=== PATIENT | female | born 1965 | race Caucasian/White ===

== ENCOUNTER 2017-03-12 09:29 | Emergency (ER) | payer BC ==
--- OUTSIDE RECORDS SUMMARY | 2017-03-12 09:45 | XMS REPORT ---
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 Active AND/OR meniscus of knee Onset: 02/10/2013 Sciatica Julien Arreola M.D. Active Onset: 02/10/2013 Acquired spondylolisthesis Julien Arreola M.D. 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 Cigarette Use Never Smoked Cigarettes ETOH Use Occasionally consumes alcohol Recreational Drug Use Denies Drug Use Smoking Patient has never smoked Exercise Type/Frequency Exercises regularly General Hx Text Allergies, Adverse Reactions, Alerts Date Description Reaction Status Severity Comments 02/10/2013 Sulfa Antibiotics active Medications Medication Date Status Form Strength Qnty SIG Indications Ordering Provider Duloxetine / Active Caps DR 30mg 1 by mouth Unknown HCL 0000 Part every day Glucosamine / Active Unknown 0000 Loratadine / Active Tablets 10mg 1 by mouth Unknown 0000 every day MCT Oil / Active Oil Unknown 0000 Lion's Garrick / Active Unknown 0000 Spiriva / Active Capsules 18mcg 1 unit Unknown Handihaler 0000 inhalation daily Advair / Active Unknown 0000 Vitamin D / Active Unknown 0000 Calcium / Active Unknown 0000 Nasal Steroid / Active Unknown 0000 Multivit / Active 1 by mouth Unknown Drink 0000 every day Lamictal / Hx Tablets 100mg 60tabs 1 po bid Unknown 0000 - 2017 Lamictal / Hx Tablets 25mg 120tab 1 po bid Unknown 0000 - s 2017 Tramadol HCL / Hx Tablets 50mg 100tab qid prn Unknown 0000 - s 2017 Flector / Hx Patches 1.3% 30unit topical prn Unknown 0000 - s 2017 Compounded / Hx prn for Unknown Ointment 0000 - nerve pain 2017 Restoril / Hx Capsules 7.5mg 30caps 1-3 po hs as Unknown 0000 - needed 2017 Xanax / Hx Tablets 0.25mg 30tabs one by mouth Unknown 0000 - up to three 02/15/ times daily 2018 as needed for anxiety Ibuprofen / Hx Capsules 200mg prn Unknown - 2017 Naproxen / Hx Tablets 500mg 60tabs 1 po bid prn Unknown - 2017 Vital Signs Date Vital Result Comment 02/24/2017 Height 61 inches 5'1" Weight 139.00 lb w/o shoes Heart Rate 74 /min reg BP Systolic Sitting 120 mmHg Rue, reg cuff BP Diastolic Sitting 80 mmHg Rue, reg cuff Respiratory Rate 16 /min Pain Level 2 right knee BMI (Body Mass Index) 26.3 kg/m2 03/03/2013 Height 61.5 inches 5'1.50" Weight 136.00 lb BP Systolic 126 mmHg BP Diastolic 78 mmHg Pain Level 0 BMI (Body Mass Index) 25.3 kg/m2 02/10/2013 Height 61.5 inches 5'1.50" Weight 139.00 lb BP Systolic 110 mmHg BP Diastolic 78 mmHg Pain Level 3 low back, left hip, buttock and leg BMI (Body Mass Index) 25.8 kg/m2 Results Description No Information Procedures Description No Information Encounters Type Date Location Provider CPT E/M Dx Office Visit 03/03/2013 [facility] Julien Arreola, 33858 756.11 1:00p [facility] 738.4 Office Visit 02/10/2013 2:00p [facility] Julien Arreola, 76275 756.11 [facility] 738.4 724.3 Office Visit 01/02/2010 2:20p [facility] Julien Arreola 17907 850.0 [facility] [place] [facility] 847.2 E812.0 Office Visit 02/27/2008 4:00p [facility] Julien Arreola, 09709 721.0 [facility] Plan of Care 02/24/2017 - Saud Martinez M.D.S83.221A Prph tear of medial meniscus, current injury, r knee, initNew Xrays:SP Cervical 4+VWSFollow up:Call to set up surgery
--- OUTSIDE RECORDS SUMMARY | 2017-03-12 09:45 | XMS REPORT ---
:1965 External Reference #:[id number] Author Organization [facility] Address [address] [place] [address] Phone [phone] Care Team Providers Name Role Phone Jeremy Guidry MD Primary Care Physician Unavailable Payers Type Date Identification Numbers Payment Provider Subscriber Commercial Policy Number: [id number] BC/BS Of MIAN Rozina Allen PayID: [id number] [facility] [address] [place] [address] Problems Date Description Provider Status Onset: 11/05/2015 Moderate persistent asthma Marilyn Connie, MUNICIPAL MAINTENANCE WORKER-C Active Onset: 11/05/2015 Allergic rhinitis Marilyn Connie, MUNICIPAL MAINTENANCE WORKER-C Active Onset: 11/05/2015 Allergic rhinitis due to animals Marilyn Connie, MUNICIPAL MAINTENANCE WORKER-C Active Onset: 11/05/2015 Allergic rhinitis due to pollen Marilyn ConnieVAN roseP-C Active Onset: 04/25/2013 Tietze's disease Saud Brown M.D. Active Onset: 04/25/2013 Extrinsic asthma without status Saud Brown M.D. 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 Home Environment Has a window air conditioner Home Environment Mattress is 1 year old Home Environment Mattress is encased in an allergy proof case Home Environment Does not use a dehumidifier Home Environment The home is lew Home Environment The floors are wood Home Environment Uses forced air heating Home Environment [place] Environment Water Source: Well Smoke-Free Home is smoke-free Smoke-Free Work is smoke-free Pets 1 dog 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 ETOH Use Rarely consumes alcohol Smoking Patient has never smoked Recreational Drug Use Never Used Drugs Allergies, Adverse Reactions, Alerts Date Description Reaction Status Severity Comments 04/25/2013 Sulfa itching active 05/23/2013 Symbicort (US) shortness of breath & anxiety active Medications Medication Date Status Form Strength Qnty SIG Indications Ordering Provider Spiriva Respimat 07/10 Active Aerosol 1.25mcg/A 4gm 2 ct inhalation [place]rich, once a day MUNICIPAL MAINTENANCE WORKER-C Advair Diskus 09/19 Active Aerosol 250-50mcg 1unit 1 / s inhalation Uldrich, twice MUNICIPAL MAINTENANCE WORKER-C daily. rinse mouth following every use Optichamber 10/24 Active Misc 1unit use with Mary s all Dussing, inhalers MUNICIPAL MAINTENANCE WORKER-C may substitute easivent or aerochamber Nasonex 10/23 Active Suspension 50mcg/Act 1unit 1-2 sprays J30.1 s each Uldrich, nostril MUNICIPAL MAINTENANCE WORKER-C once daily Tramadol HCL Active Tablets 50mg Unknown /[address] 30mg Unknown /0000 Part Loratadine Active Tablets 10mg 30tab 1 tablet by Ana /0000 s mouth every Uldrich, day. MUNICIPAL MAINTENANCE WORKER-C Albuterol Active Nebulizer (2.5mg/3M 150un #1 via Ana /0000 L) 0.083% its nebulizer Uldrich, every 4-6 MUNICIPAL MAINTENANCE WORKER-C hours as needed for cough, shortness of breath and wheezing Proair HFA Active Aerosol 108(90Bas two Unknown /0000 e) inhalations mcg/Act every 4 hours as needed for cough, wheezing or chest tightness Cyclobenzaprine 00 Active Tablets prn Unknown HCL 0000 Temazepam 00 Active Capsules 15mg Stevanovi /0000 Jeremy bergeron MD Guaifenesin ER 00 Active Tablets ER 1200mg 1 by mouth Unknown /0000 12HR every 12 hours Immunizations CPT Code Status Date Vaccine Lot # [id number] Given Unknown Influenza Vaccine Vital Signs Date Vital Result Comment 03/01/2017 Height 61 inches 5'1" Weight 140.00 lb Weight in kg's 63.504 Respiratory Rate 20 /min Heart Rate 86 /min O2 % BldC Oximetry 98 % BP Systolic 116 mmHg BP Diastolic 79 mmHg Asthma Control Test 16 BMI (Body Mass Index) 26.4 kg/m2 07/02/2016 Height 61 inches 5'1" Weight 139.00 lb Weight in kg's 63.050 Respiratory Rate 20 /min Heart Rate 91 /min O2 % BldC Oximetry 98 % BP Systolic 115 mmHg BP Diastolic 81 mmHg Asthma Control Test 15 BMI (Body Mass Index) 26.3 kg/m2 11/05/2015 Height 61 inches 5'1" patient stated Weight 132.00 lb patient stated Weight in kg's 59.875 Respiratory Rate 20 /min Heart Rate 79 /min O2 % BldC Oximetry 97 % BP Systolic 107 mmHg BP Diastolic 68 mmHg Asthma Control Test 22 BMI (Body Mass Index) 24.9 kg/m2 09/03/2015 Height 61 inches 5'1" Weight 132.00 lb Weight in kg's 59.875 Respiratory Rate 16 /min Heart Rate 85 /min O2 % BldC Oximetry 98 % BP Systolic 106 mmHg BP Diastolic 70 mmHg Asthma Control Test 5 BMI (Body Mass Index) 24.9 kg/m2 05/02/2015 Height 61 inches 5'1" Weight 134.00 lb per patient Weight in kg's 60.782 Respiratory Rate 16 /min Heart Rate 90 /min O2 % BldC Oximetry 96 % BP Systolic 102 mmHg BP Diastolic 78 mmHg Asthma Control Test 16 BMI (Body Mass Index) 25.3 kg/m2 11/20/2014 Height 61 inches 5'1" Weight 126.00 lb Weight in kg's 57.154 Respiratory Rate 16 /min Heart Rate 61 /min O2 % BldC Oximetry 99 % BP Systolic 115 mmHg BP Diastolic 72 mmHg Asthma Control Test 17 BMI (Body Mass Index) 23.8 kg/m2 10/23/2014 Height 61 inches 5'1" Weight 131.00 lb Weight in kg's 59.422 Respiratory Rate 16 /min Heart Rate 80 /min O2 % BldC Oximetry 97 % BP Systolic 122 mmHg BP Diastolic 72 mmHg Asthma Control Test 11 BMI (Body Mass Index) 24.7 kg/m2 05/23/2013 Height 61 inches 5'1" Weight 139.00 lb Weight in kg's 63.050 Respiratory Rate 16 /min Heart Rate 67 /min O2 % BldC Oximetry 98 % BP Systolic 102 mmHg BP Diastolic 78 mmHg BMI (Body Mass Index) 26.3 kg/m2 04/25/2013 Height 61 inches 5'1" Weight 139.00 lb Weight in kg's 63.050 Respiratory Rate 18 /min Heart Rate 112 /min O2 % BldC Oximetry 98 % BP Systolic 126 mmHg BP Diastolic 74 mmHg BMI (Body Mass Index) 26.3 kg/m2 Results Description No Information Procedures Date CPT Code Description Status 03/01/2017 68233 Pre PFT Completed 07/02/2016 40589 Pre PFT Completed 11/05/2015 43772 Pre PFT Completed 09/03/2015 77502 Pre PFT Completed 05/02/2015 82361 Pre PFT Completed 10/23/2014 07459 Pulmonary Function Test Completed 05/25/2013 02707 Extract 1-10 Completed 04/25/2013 93691 Skin Test Scratch # Of Units ____ Completed 04/25/2013 77028 Pulmonary Function Test Completed Encounters Type Date Location Provider CPT E/M Dx Office Visit 03/01/2017 3:40p William Bourne [facility] 21192 Z23 J45.41 J30.1 J30.81 J30.89 J30.2 Office Visit 07/02/2016 3:00p [place] Courtney Goetz [facility] 87355 J45.41 J30.1 J30.81 J30.89 J30.2 Z68.26 Office Visit 11/05/2015 11:40a [place] [facility] Marilyn Rosales MUNICIPAL MAINTENANCE WORKER-C 62332 J45.40 J30.1 J30.81 J30.89 J30.2 Z68.24 Office Visit 09/03/2015 1:40p [place] Mary Alvarado MUNICIPAL MAINTENANCE WORKER-C 92697 J45.30 J30.1 J30.89 Z68.24 Office Visit 05/02/2015 10:20a [place] Mary AlvaradoMARIBEL 27024 J45.30 J30.1 J30.89 Z68.25 Office Visit 11/20/2014 10:20a [place] Mary AlvaradoMARIBEL 95592 J45.30 J30.1 J30.89 Z68.23 Office Visit 10/23/2014 11:40a [place] Mary AlvaradoMARIBEL 65823 477.0 477.8 493.00 V85.1 Office Visit 05/23/2013 11:00a [facility] Saud Brown M.D. 16144 477.8 493.00 733.6 Office Visit 04/25/2013 9:00a [facility] Saud Brown M.D. 46565 477.8 493.00 733.6 Plan of Care Future Appointment(s):08/30/2017 4:00 pm - [id number] - NEVIN GramajoC[facility]23 Encounter for cxfjacgzvitrG42.41 Moderate persistent asthma with (acute) rktwtfqousbrB03.1 Allergic rhinitis due to uplbmmV55.81 Allergic rhinitis due to animal (cat) (dog) hair and fnbzmgF17.89 Other allergic akeoxemiB09.2 Other seasonal allergic rhinitisFollow up:6 months with pre PFTRecommendations:Continue all medications as prescribed.Refrain from wearing perfumes/scented colognes while visitingour office. continue: Advair 250-50 mcq 1 inhalation in am&pm - rinse mouth after use Proair2 puffs every 4 hours as needed for cough, wheeze, or shortness of breath Loratadine 10mg daily Nasonex 1-2 sprays each nostril daily Spiriva 2 inhalations in the am If symptoms increase, call our office. Med Refilled : Nasonex
[2017-03-12 10:04] VITALS: BP 117/77
== END 2017-03-12 10:41 | disposition left against medical advice (07) ==
LOC: UCEAST 09:29
DX: Z53.21 Procedure and treatment not carried out due to patient leaving prior to being seen by health care provider (principal)

== ENCOUNTER 2017-03-22 12:13 | Day surgery (SDC) | payer BC ==
[~2017-03-22 12:13] MED LIST: Buffered Lidocaine 0.9% SYRIN* 5 ML/SYR SYRINGE INTRADERM ONE; Famotidine IV* 10 MG/ML 2 ML (20 mg) IV ONE; Metoclopramide TAB* 10 MG PO ONE
[2017-03-22] MEDS ORDERED: ceFAZolin 2 GM PREMIX (*) 2 GM/50 ML BAG IVPB ONE (12:20)
[2017-03-22] MEDS ORDERED: Metoclopramide TAB* 10 MG ONE (12:20)
[2017-03-22] MEDS ORDERED: Famotidine IV* 10 MG/ML 2 ML (20 mg) ONE (12:20)
[2017-03-22] MEDS ORDERED: KETAMINE HCL* 50 MG/ML 10 ML VIAL ONE (14:53)
[2017-03-22] MEDS ORDERED: Propofol* 10 MG/ML 20 ML BTL IV PUSH ONE (14:53)
[2017-03-22] MEDS ORDERED: Lidocaine 2% PF * 5 ML VIAL ONE (14:53)
[2017-03-22] MEDS ORDERED: Dexamethasone IV* 4 MG/ML 1 ML (4 MG) ONE (14:53)
[2017-03-22] MEDS ORDERED: Ondansetron INJ* 2 MG/ML VIAL ONE (14:53)
[2017-03-22] MEDS ORDERED: Ketorolac INJ* 30 MG/ML 1 ML VIAL ONE (14:53)
[2017-03-22] MEDS ORDERED: fentaNYL* 50 MCG/ML 2 ML VIAL (100 MCG VIAL) ONE (14:53)
[2017-03-22] MEDS ORDERED: Midazolam* 1 MG/ML 2 ML VIAL (2 MG) ONE (14:54)
[2017-03-22] MEDS ORDERED: Bupivacaine 0.25% SDV* 30 ML ONE (16:09)
[2017-03-22] MEDS ORDERED: EPINEPHRINE 1 MG/ML 1 ML VIAL ONE (16:09)
[2017-03-22] MEDS ORDERED: Lidocaine 1% INJ* 10 MG/ML 30 ML SDV ONE (16:09)
[2017-03-22] MEDS ORDERED: Lidocaine 1% MPF wEPI 200,000* 30 ML SDV ONE (16:16)
[2017-03-22] MEDS ORDERED: oxyCODONE/Acetamin 5/325 MG* TAB PO PRN (16:58)
[2017-03-22] MEDS ORDERED: Naloxone* 0.4 MG/ML 1 ML VIAL IV PRN (16:58)
[2017-03-22] MEDS ORDERED: fentaNYL* 50 MCG/ML 2 ML VIAL (100 MCG VIAL) IV PRN (16:58)
[2017-03-22] MEDS ORDERED: Ondansetron INJ* 2 MG/ML VIAL IV PRN (16:58)
[2017-03-22] MEDS ORDERED: Dexamethasone IV* 4 MG/ML 5 ML VIAL (20 MG) ONE (17:05)
[2017-03-22 18:56] VITALS: BP 124/72
--- NOTE | 2017-03-23 13:10 | OP ---
DATE OF OPERATION: 03/22/17 - SDS DATE OF : 65 SURGEON: Saud Martinez MD GARAGE HAND: ALLISON Sunshine ANESTHESIOLOGIST: Jean-Pierre Quintana MD ANESTHESIA: General. PRE-OP DIAGNOSES: 1. Medial meniscus tear, right knee. 2. Chondromalacia, right knee. POST-OP DIAGNOSES: 1. Medial meniscus tear, right knee. 2. Chondromalacia, right knee. OPERATIVE PROCEDURE: 1. Right knee arthroscopy. 2. Partial medial meniscectomy. 3. Chondroplasty/microfracture, medial femur. ESTIMATED BLOOD LOSS: Negligible. COMPLICATIONS: None. SUMMARY: Mrs. Allen is a 51-year-old female who is having troubles with her right knee since this past spring. She had been very active gardening and was up and down and very specifically had felt and heard a pop within the right knee. She has just had continued pain about the knee, which has not gotten better with conservative treatment. This consisted of NSAIDs injections, prolotherapy, glucosamine and chondroitin. The anti-inflammatories and I think did decrease her symptoms, but did not give her lasting relief. She did undergo an MRI, which identified a very specific medial meniscus tear. On physical exam, we could recreate her symptoms with Mark and Saira testing. I discussed with her that it seemed like her meniscus was very specifically symptomatic and that a right knee arthroscopy should work well to decrease her pain and improve her function. Risks of surgery such as infection, scar formation, stiffness, DVT, pulmonary embolism and continued pain, or some other risks discussed. She had wished to proceed. DESCRIPTION OF PROCEDURE: The patient was brought to the OR and an LMA was placed. Right knee was prepped and then draped. Portal sites were pre-injected using 0.25% Marcaine with 1% lidocaine with epinephrine and a standard lateral portal was made first using an 11 blade. Blunt trocar with a sheath was easily introduced into the knee and passed under the patella. Camera was introduced into the sheath and the knee was allowed to insufflate. Pulling back, patello- femoral joint was nicely visualized. It could be seen how she had somewhere right along the depth of the femoral notch and later I would gently debride this using the shaver. Small spur was also present on the inferior lateral corner of the patella. Dropping down to medial gutter, no loose bodies were seen and medial compartment was entered. Again, there was a very specific wear which actually did correspond nicely to her MRI right along the medial femoral condyle. Medial portal was made and probe was introduced and it could be seen where some of her cartilage was delaminating from the femur. Loose cartilage was gently debrided using the shaver and the Bonnie pick was called for. It could be seen posteriorly where she had a very specific medial meniscus tear. Shaver was used to debride this until a nice stable rim of meniscus remained. Pictures were taken afterwards. Bonnie pick was also used to do a microfracture technique along the area of the medial femoral condyle where she had lost her articular cartilage. Moving into the notch, she had an intact ligamentum mucosum and this was taken down using the shaver. ACL was intact to probing. Coming into the lateral compartment, the lateral compartment was in very good condition. She had a little bit of damage on the tibial plateau, which was also gently debrided, but there was no meniscus tears and cartilage had that nice trampoline look and feel with probing. Second look revealed no additional pathology. All instrumentation was removed. Portal sites were closed using 4-0 nylon sutures. Knee was injected with an additional 30 cc of the 50: 50 mixture of lidocaine and Marcaine mixed with 8 mg of dexamethasone. Sterile dressing and a Cryo/Cuff were applied in the OR. The patient had the LMA removed in the OR and was stable on transfer to the recovery room. DISPOSITION/DISCHARGE SUMMARY: Mrs. Allen is a 51-year-old female who just underwent a right knee arthroscopy. She tolerated the procedure well with no complications. She is currently rolling towards the recovery room. When she awakes a bit more from her general anesthesia, can tolerate p.o., has her pain well controlled, can void, and she will be discharged home. A script for [place] was e- scribed in. She has instructions to keep her dressing clean, dry, and intact for the next 3 days, but after that, may take her dressing down, cover her sutures with bandage, may shower, wash and get it wet, but should not soak it. I would like to see her in the office in approximately 10 days to remove her sutures and make sure she is doing well. If there are any problems or if anything odd should occur, there are instructions to give the office a call. [id number]/[facility] #: [id number] PEARL
== END 2017-03-22 18:40 | disposition home or self-care (01) ==
LOC: OR 12:13
PROVIDERS: ATTEND Orthopaedic Surgery
DX: S83.221A Peripheral tear of medial meniscus, current injury, right knee, initial encounter (principal); M94.261 Chondromalacia, right knee; X50.3XXA Overexertion from repetitive movements, initial encounter; Y92.89 Other specified places as the place of occurrence of the external cause; Y99.8 Other external cause status
CPT/HCPCS: A9270-GY; J0690; J1100; J1885; J2001; J2250; J2405; J2704; J3010